=== PATIENT | female | born 1985 | race African-American/Black ===

== ENCOUNTER 2020-06-04 01:32 | Emergency (ER) | payer SELFPAY ==
[~2020-06-04] VITALS: Ht 165.1 cm; Wt 64.0 kg
[2020-06-04] MEDS ORDERED: FAMOTIDINE 20MG/2ML VIAL IV STA (01:59)
[2020-06-04] MEDS ORDERED: ONDANSETRON HCL 4MG/2ML INJ IV STA (01:59)
[2020-06-04] MEDS ORDERED: SODIUM CHLORIDE 0.9% 1,000 ML IV ONE (02:00)
[2020-06-04 02:16] LABS: HEMATOCRIT. 39.6 % (36.0-48.0); HEMOGLOBIN. 13.5 g/dL (12.0-16.0); MEAN CORPUSCULAR VOLUME 82.1 fL (81.0-99.0); MEAN PLATELET VOLUME 8.3 fl (7.4-10.4); PLATELET 228 x1000/uL (130-400); RED BLOOD CELL COUNT 4.82 mill/uL (4.2-5.4); RED CELL DISTRIBUTION WIDTH 13.4 % (11.6-14.6)
[2020-06-04 02:23] LABS: CHLORIDE 107 mEq/L (98-107)
[2020-06-04 02:26] LABS: INR 1.1; PROTHROMBIN TIME 11.5 sec (9.6-11.0)
[2020-06-04 03:10] LABS: HCG SCREEN NEGATIVE
[2020-06-04] MEDS ORDERED: ONDA4TAB5 MT (03:29)
[2020-06-04] MEDS ORDERED: ONDANSETRON HCL 4MG/2ML INJ IV ONE (03:45)
[2020-06-04] MEDS ORDERED: MORPHINE SULFATE 4 MG/ML CPJ (NOT FOR IM USE) IV ONE (04:30)
[2020-06-04 04:42] LABS: CLARITY URINE CLEAR (CLEAR); COLOR URINE YELLOW (YELLOW); KETONES URINE 3+ (NEGATIVE); LEUKOCYTE ESTERASE URINE 1+ (NEGATIVE); NITRITE URINE NEGATIVE (NEGATIVE); OCCULT BLOOD URINE 3+ (NEGATIVE); PH URINE 5.5 (4.5-8.0); PROTEIN URINE TRACE (NEGATIVE); SPECIFIC GRAVITY URINE 1.023 (1.005-1.030); UROBILINOGEN URINE 0.2 E.U./dL (0.2-1.0)
[2020-06-04 05:50] VITALS: BP 114/70
[2020-06-04 06:15] LABS: PLATELET ESTIMATE NORMAL
== END 2020-06-04 05:51 | disposition home or self-care (01) ==
LOC: ER 01:32
DX: R11.2 Nausea with vomiting, unspecified (principal); R10.13 Epigastric pain; R03.0 Elevated blood-pressure reading, without diagnosis of hypertension; R74.8 Abnormal levels of other serum enzymes
CPT/HCPCS: 36415; 80053; 80320; 81003; 83690; 84703; 85025; 85610; 93005; 96361; 96374; 96375; 96376; 99284; J2270; J2405; J3490; J7030; G0480